=== PATIENT | male | born 1975 | race Caucasian/White ===

== ENCOUNTER 2023-08-15 07:24 | Day surgery (SDC) | payer BC ==
[2023-08-13 11:44] VITALS: BMI 29.5
[2023-08-15] MEDS ORDERED: LACTATED RINGERS 1,000 ML IV ONE ×2 (07:47)
[2023-08-15] MEDS ORDERED: LACTATED RINGERS 1,000 ML IV SCH (07:48)
[2023-08-15 08:02] VITALS: TEMP 96.9
[2023-08-15] MEDS ORDERED: MIDAZOLAM 2 MG/2 ML VIAL ONE (09:12)
[2023-08-15] MEDS ORDERED: fentaNYL (PF) 50 MCG/ML 2 ML AMP ONE (09:12)
[2023-08-15] MEDS ORDERED: LIDOCAINE 1% INJ 10MG/ML (20 ML MDV) ONE (09:12)
[2023-08-15] MEDS ORDERED: PROPOFOL 10 MG/ML 20 ML VIAL IV ONE (09:12)
--- NOTE | 2023-08-15 09:38 | P.PCN ---
Date of Procedure: 08/15/23 Procedure(s) Performed: Brief history: Patient is a pleasant 47-year-old white male scheduled for an elective upper endoscopy as well as colonoscopy as a part of evaluation of GERD and screening for colon cancer Procedure performed: Esophagogastroduodenoscopy with biopsy Colonoscopy with snare polypectomy Preoperative diagnosis: GERD Screening for colon cancer [place] [facility] [place]: After informed consent was obtained from the patient was brought into the endoscopy unit and IV sedation was administered by anesthesia under continuous monitoring. Initially upper endoscopy was done. The Olympus GF 160 video endoscope was inserted inserted into the mouth and esophagus intubated without any difficulty and was gradually advanced into the stomach and duodenum and carefully examined. The bulb of the duodenum appeared normal. The second part of the duodenum there were patchy areas of erythema consistent with duodenitis and biopsies were done from this area. The The scope was then withdrawn into the stomach adequately insufflated with air and upon careful examination the antrum had patchy areas of erythema consistent with gastritis. Biopsies were done from this area. Mucosa of the body, cardia and fundus appeared normal. The scope was then withdrawn into the esophagus. The GE junction was located at 40 cm to the incisors. It appeared regular with no erythema erosions or ulcerations. Rest of the esophagus appeared normal. Patient tolerated the procedure well. At this time the patient continued to remain sedation. Initial digital rectal examination was normal. Olympus CF 160 video colonoscope was then inserted into the rectum and gradually advanced to the cecum without any difficulty. Careful examination was performed as the scope was gradually being withdrawn. The prep was excellent. The cecum, ascending colon, appeared normal. The transverse colon there was a 7 mm flat polyp removed by snare polypectomy. Rest of the transverse colon, descending colon, sigmoid colon and rectum appeared normal. Retroflexion was performed in the rectum and no lesions were noted. Patient tolerated the procedure well. Impression: 1. Upper endoscopy revealed mild antral gastritis and duodenitis 2. Colonoscopy revealed 7 mm flat transverse colon polyp status post p olypectomy Recommendations: Findings of this examination were discussed with the patient as well as a family. He was advised to follow with the biopsy results. Continue with Protonix 40 mg daily and follow antireflux measures.. If the biopsy results adenoma he can have a repeat colonoscopy in 5 years
[2023-08-15 09:48] VITALS: RESP 16
[2023-08-15 10:08] VITALS: BP 107/75; PULSE 86
== END 2023-08-15 10:30 | disposition home or self-care (01) ==
LOC: ORWHC2ENDO 07:24
PROVIDERS: ATTEND Internal Medicine Gastroenterology
DX: Z12.11 Encounter for screening for malignant neoplasm of colon (principal); K29.80 Duodenitis without bleeding; K29.70 Gastritis, unspecified, without bleeding; K31.9 Disease of stomach and duodenum, unspecified; K21.9 Gastro-esophageal reflux disease without esophagitis; K63.5 Polyp of colon; J45.909 Unspecified asthma, uncomplicated; Z88.1 Allergy status to other antibiotic agents; Z79.51 Long term (current) use of inhaled steroids; Z79.899 Other long term (current) drug therapy
CPT/HCPCS: 88305; 45385; 43239; J2250; J2001; J3010; J2704